=== PATIENT | male | born 1975 | race American Indian/Alaskan Native ===

== ENCOUNTER 2020-03-25 16:31 | Emergency (ER) | payer SELFPAY ==
[2020-03-25 16:42] VITALS: BP 146/79
--- NOTE | 2020-03-25 17:02 | Emergency Department Report ---
Chief Complaint: Urogenital-Male Stated Complaint: GROIN PAIN - HPI History of Present Illness: 44-year-old -[place] male presents to the emergency room complaining of 3 bumps on his penis that states that is been there for 6 months to a year. Patient reports that he is not sexually active. Patient denies any pain. - Exam Vital Signs: Vital Signs 03/25/20 16:39 Temperature 98.0 F Pulse Rate 66 Respiratory 20 Rate Blood Pressure 146/79 O2 Sat by Pulse 100 Oximetry Physical Exam: Patient is alert and oriented x3 no acute distress Patient is amatory without difficulty. MSE screening note: Focused history and physical exam performed. Due to findings the following was ordered: 44-year-old -[place] male presents to the emergency room complaining of 3 bumps on his penis that states that is been there for 6 months to a year. Patient reports that he is not sexually active. Patient denies any pain. Recommend patient to follow-up at the health department or primary care department. ED Disposition for [facility] [place] Disposition: MED SCREENING EXAM-LEFT Is pt being admited?: No Does the pt Need Aspirin: No Condition: Stable Additional Instructions: Follow-up at the health department Referrals: [facility] [Outside] - 3-5 Days
== END 2020-03-25 18:50 | disposition left against medical advice (07) ==
LOC: ED 16:31
DX: N50.9 Disorder of male genital organs, unspecified (principal); Z53.21 Procedure and treatment not carried out due to patient leaving prior to being seen by health care provider

== ENCOUNTER 2022-02-26 04:56 | Emergency (ER) | payer OTHER ==
[2022-02-26 05:14] VITALS: BP 146/90
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
== END 2022-02-26 05:56 ==
LOC: ED 04:56
CPT/HCPCS: 99282